=== PATIENT | female | born 1995 | race Hispanic/Latino ===

== ENCOUNTER 2022-02-18 23:22 | Emergency (ER) | payer OTHER ==
[2022-02-18] MEDS ORDERED: Ibuprofen 800 MG TAB ONE (23:51)
[2022-02-18] MEDS ORDERED: Acetaminophen 325 MG TAB ONE (23:51)
== END 2022-02-19 00:47 | disposition home or self-care (01) ==
LOC: ERS 23:22
DX: S46.912A Strain of unspecified muscle, fascia and tendon at shoulder and upper arm level, left arm, initial encounter (principal); S20.212A Contusion of left front wall of thorax, initial encounter; V89.2XXA Person injured in unspecified motor-vehicle accident, traffic, initial encounter